=== PATIENT | male | born 1950 | race Caucasian/White ===

== ENCOUNTER 2018-06-29 16:11 | Inpatient (IN) | payer MEDICARE, BC ==
[2018-06-29] MEDS: SOD CHLORIDE 0.9% 500 ML IV (16:52)
[2018-06-29 16:56] LABS: ABNORMAL IP MESSAGE 1; HEMATOCRIT 39.9 % (42.0-52.0); HEMOGLOBIN 13.1 g/dl (14.0-18.0); MEAN CORPUSCULAR HEMOGLOBIN 27.8 pg (29.0-33.0); MEAN CORPUSCULAR HGB CONC 32.8 g/dl (32.0-37.0); MEAN CORPUSCULAR VOLUME 84.7 fl (82.0-101.0); MEAN PLATELET VOLUME 9.5 fl (7.4-10.4); PLATELET COUNT 260 10^3/UL (140-415); POSITIVE DIFF @See below; RED BLOOD COUNT 4.71 10^6/ul (4.70-6.10)
[2018-06-29 16:59] LABS: ADD MAN DIFF? YES
[2018-06-29 17:16] LABS: BAND NEUTROPHILS #M 1.9 10^3/ul (0.0-0.6); BAND NEUTROPHILS % (M) 8 % (0-4); INR 0.98; LYMPHOCYTES #M 0.7 10^3/ul (0.8-2.9); LYMPHOCYTES % (M) 3 % (15-51); MONOCYTE #M 0.2 10^3/ul (0.3-0.9); MONOCYTES % (M) 1 % (0-11); PLATELET ESTIMATE NORMAL; PROTIME 13.1 Sec (11.9-14.9); SEG NEUT #M 21.6 10^3/ul (1.6-7.5); SEGMENTED NEUTROPHILS (M) % 88 % (39-77); SMUDGE%M 1 % (0-0)
[2018-06-29 17:17] LABS: PARTIAL THROMBOPLASTIN TIME 23.6 Sec (23.0-35.0)
[2018-06-29 17:22] LABS: ALANINE AMINOTRANSFERASE 25 IU/L (13-69); ALBUMIN/GLOBULIN RATIO 1.48; ALKALINE PHOSPHATASE 35 IU/L (42-121); ANION GAP 13 (5-13); ASPARTATE AMINO TRANSFERASE 38 IU/L (15-46); BILIRUBIN,INDIRECT 0.2 mg/dl (0-1.1); BILIRUBIN,TOTAL 0.2 mg/dl (0.2-1.3); BLOOD UREA NITROGEN 20 mg/dl (7-20); CALCIUM 8.5 mg/dl (8.4-10.2); CARBON DIOXIDE 20 mmol/L (21-31); CHLORIDE 101 mmol/L (97-110); CREATININE 0.73 mg/dl (0.61-1.24); Estimated GFR > 60 mL/min (>60); GLUCOSE 206 mg/dl (70-220); LIPASE 16 U/L (23-300); POTASSIUM 3.9 mmol/L (3.5-5.1); SODIUM 134 mmol/L (135-144); TOTAL PROTEIN 6.7 g/dl (6.1-8.1)
[2018-06-29] MEDS: SOD CHLORIDE 0.9% 100 ML (17:26)
[2018-06-29] MEDS: IOHEXOL 100 ML (17:26)
[2018-06-29 17:33] LABS: TROPONIN-I < 0.012 ng/ml (0.000-0.120)
[2018-06-29] MEDS: ASPIRIN 300 MG SUPP PR (17:50)
[2018-06-29] MEDS: SOD CHLORIDE 0.9% 1,000 ML IV (19:45)
[2018-06-29] MEDS: ACETAMINOPHEN 1000MG/100ML IV 100 ML IVPB (19:50)
[2018-06-29] MEDS ORDERED: DOCUSATE SODIUM 100 MG CAP PO (20:30)
[2018-06-29] MEDS ORDERED: NITROGLYCERIN (SL) 0.4 MG TAB SL (20:30)
[2018-06-29] MEDS ORDERED: BISACODYL (EC) 5 MG TAB PO (20:30)
[2018-06-29] MEDS ORDERED: ONDANSETRON 4 MG TAB PO (20:30)
[2018-06-29] MEDS ORDERED: NACL 0.9% 3 ML SYG IV (20:30)
[2018-06-29] MEDS ORDERED: morphine 2 MG INJ IV (20:30)
[2018-06-29 23:16] LABS: CREATINE KINASE 431 IU/L (23-200)
[2018-06-29 23:25] LABS: CK INDEX 1.4
[2018-06-29] MEDS ORDERED: ACETAMINOPHEN 1000MG/100ML IV 100 ML IVPB (23:30)
[2018-06-29 23:32] LABS: CK-MB 6.24 ng/ml (0.0-2.4)
[2018-06-29 23:45] LABS: TROPONIN-I < 0.012 ng/ml (0.000-0.120)
[2018-06-30] MEDS: PIPER-TAZO 3.375 GM IV (PMX) 100 ML IVPB ×2 (00:22→06:27)
[2018-06-30] MEDS: SOD CHLORIDE 0.9% 1,000 ML IV ×3 (00:23→10:55)
[2018-06-30] MEDS: ACETAMINOPHEN 325 MG TAB PO ×3 (00:35→10:46)
[2018-06-30 06:36] LABS: ADD MAN DIFF? NO
[2018-06-30 06:47] LABS: WHITE BLOOD COUNT 14.8 10^3/ul (4.8-10.8)
[2018-06-30 06:47] LABS: BASOPHILS % 0.1 % (0.0-2.0); HEMATOCRIT 34.4 % (42.0-52.0); HEMOGLOBIN 11.5 g/dl (14.0-18.0); LYMPHOCYTES % 6.7 % (15.0-51.0); MEAN CORPUSCULAR HGB CONC 33.4 g/dl (32.0-37.0); MEAN CORPUSCULAR VOLUME 83.7 fl (82.0-101.0); MEAN PLATELET VOLUME 9.5 fl (7.4-10.4); MONOCYTES % 6.5 % (0.0-11.0); NEUTROPHIL # 12.7 10^3/ul (1.6-7.5); PLATELET COUNT 232 10^3/UL (140-415); RED BLOOD COUNT 4.11 10^6/ul (4.70-6.10)
[2018-06-30 06:58] LABS: HEMOGLOBIN A1C 5.3 % (0-5.9)
[2018-06-30 07:12] LABS: CREATINE KINASE 383 IU/L (23-200)
[2018-06-30 07:24] LABS: CK INDEX 1.8; TROPONIN-I < 0.012 ng/ml (0.000-0.120)
[2018-06-30 07:26] LABS: CK-MB 6.74 ng/ml (0.0-2.4)
[2018-06-30 07:39] LABS: ALANINE AMINOTRANSFERASE 29 IU/L (13-69); ALBUMIN 3.5 g/dl (3.3-4.9); ALBUMIN/GLOBULIN RATIO 1.45; ALKALINE PHOSPHATASE 42 IU/L (42-121); ANION GAP 9 (5-13); ASPARTATE AMINO TRANSFERASE 35 IU/L (15-46); BILIRUBIN,INDIRECT 0.3 mg/dl (0-1.1); BILIRUBIN,TOTAL 0.3 mg/dl (0.2-1.3); BLOOD UREA NITROGEN 12 mg/dl (7-20); CARBON DIOXIDE 25 mmol/L (21-31); CHLORIDE 105 mmol/L (97-110); CREATININE 0.72 mg/dl (0.61-1.24); Estimated GFR > 60 mL/min (>60); GLUCOSE 112 mg/dl (70-220); SODIUM 139 mmol/L (135-144); TOTAL PROTEIN 5.9 g/dl (6.1-8.1)
[2018-06-30 07:43] LABS: MAGNESIUM 1.9 mg/dl (1.7-2.5)
[2018-06-30 07:43] LABS: CHOL/HDL RATIO 2.8 RATIO; CHOLESTEROL 130 mg/dl (100-200); HDL CHOLESTEROL 46 mg/dl (30-78); LDL CHOLESTEROL,CALCULATED 79 mg/dl; TRIGLYCERIDES 26 mg/dl (0-149)
== END 2018-06-30 12:00 | disposition home or self-care (01) | DRG 313 ==
LOC: E/R 16:11 → TEL 18:31
DX: R07.89 Other chest pain (principal); I10 Essential (primary) hypertension; E78.5 Hyperlipidemia, unspecified; E03.9 Hypothyroidism, unspecified; Z86.73 Personal history of transient ischemic attack (TIA), and cerebral infarction without residual deficits; Z85.51 Personal history of malignant neoplasm of bladder
CPT/HCPCS: 70450; 70486; 71045; 71275; 80053; 80061; 82550; 82553; 83036; 83690; 83735; 84443; 84484; 85025; 85610; 85730; 87040; 93005; 93970; 99285-25